=== PATIENT | male | born 2000 | race Caucasian/White ===

== ENCOUNTER 2019-10-02 10:57 | Outpatient (CLI) | payer SELFPAY | END 2019-10-02 10:58 | disposition critical access hospital (66) | LOC: EMS 10:57 | PROVIDERS: ATTEND Surgery | DX: R55 Syncope and collapse (principal); R56.9 Unspecified convulsions | CPT/HCPCS: A0425; A0429 ==

== ENCOUNTER 2019-10-02 11:37 | Emergency (ER) | payer SELFPAY ==
[2019-10-02] MEDS ORDERED: SODIUM CHLORIDE 0.9% 1,000 ML IV STA (12:10)
--- NOTE | 2019-10-02 12:13 | ED Physician Documentation ---
History of Present Illness - Stated complaint Stated Complaint: LOC - Chief complaint Chief Complaint: Neuro - History obtained from History obtained from: Patient, EMS - History of Present Illness Timing: Prior to arrival, How many hours ago (2) Pain level max: 0 Pain level now: 0 - Additonal information Additional information: 19-year-old male brought into the emergency [facility] via EMS after a syncopal episode at his job site. Patient reports to me that they told him at work he did not look well. He reports that he was sweating heavily. Patient denies that he fainted, however EMS and multiple workers at the job site do report loss of consciousness with possible seizure-like activity. On scene his blood sugar was 130. LOC approx 1 min Patient is not terribly forthcoming with information. 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 However he is employed by his father who was onsite at the workplace. Patient admits to drinking heavily in the last 24 hours 6-10 beers. He feels that he is most likely dehydrated. Patient reports that he had one other previous history of syncope in August of this year. In point patient denies fevers, body aches, nausea vomiting or diarrhea. He denies urinary symptoms, hematuria or dysuria. Patient is unsure if he could be diabetic.He takes no prescribed medications. PD PAST MEDICAL HISTORY - Present Medications Home Medications: Ambulatory Orders Medication Instructions Recorded Confirmed No Known Home Medications 10/02/19 10/02/19 - Allergies Allergies/Adverse Reactions: Allergies Allergy/AdvReac Type Severity Reaction Status Date / Time No Known Drug Allergies Allergy Verified 10/02/19 12:02 PD ED PE EXPANDED - General General: Alert, No acute distress, Other (dressed in construction gear) - HEENT HEENT: Atraumatic, PERRL, EOMI, Moist mucous membranes. No: Head injury, Tonsillar exudate, Soft palate petecchiae - Eyes Eyes: PERRL, Normal accommodation, EOMI - Neck Neck: Supple w/out meningeal sx, No tenderness. No: Adenopathy - Cardiac Cardiac: Regular Rate, Tachy, Radial strong equal, Pedal strong equal, Cap refill < 2 sec - Respiratory Respiratory: Clear to ausultation alicia. No: Distress - Abdomen Abdomen: Normal Bowel sounds. No: Tender to palpation - Derm Derm: Normal color, Warm and dry, Pale. No: Rash - Extremities Extremities: Normal - Neuro Neuro: Alert and Oriented X 3, Normal motor, Normal Speech, CNII-XII intact, PERRL, Cerebellar nl, Normal gait, Normal finger nose, Normal speech. No: Confused, Weakness, Abnormal sensation, Nystagmus - GCS Eye Opening: Spontaneous Motor: Obeys Commands Verbal: Oriented Total: 15 - Psych Psych: Normal, Poor eye contact, Other (guarded with answering questions) Results - Vitals Vitals: Vital Signs - 24 hr 10/02/19 10/02/19 11:40 12:30 Temperature 37.4 C Heart Rate 123 H 98 Respiratory 24 21 Rate Blood Pressure 136/84 H 139/92 H O2 Saturation 100 100 Oxygen O2 Source Room air - EKG (time done) 1222 Rate: Rate (enter#) (98) Rhythm: NSR [place]: Normal Intervals: Normal MA QRS: Normal Ischemia: Normal ST segments Compare to prior EKG: Old EKG unavailable Computer interpretation: Agree with computer (likely early repol) - Labs Labs: Laboratory Tests 10/02/19 10/02/19 10/02/19 12:20 12:20 12:20 WBC 8.9 RBC 4.64 L Hgb 15.0 Hct 42.7 MCV 92.0 MCH 32.3 H MCHC 35.1 RDW 12.7 Plt Count 271 MPV 10.0 Neut # (Auto) 6.6 Lymph # (Auto) 1.7 [place] # (Auto) 0.5 Eos # (Auto) 0.0 Baso # (Auto) 0.1 Absolute Nucleated RBC 0.00 Nucleated RBC % 0.0 Sodium 138 Potassium 3.4 L Chloride 101 Carbon Dioxide 26 Anion Gap 11.0 BUN 8 Creatinine 0.9 Estimated GFR (MDRD) 107 Glucose 82 Calcium 9.4 Total Bilirubin 0.9 AST 26 ALT 18 Alkaline Phosphatase 68 Total Creatine Kinase 322 H Troponin I High Sens 3.9 Total Protein 8.2 Albumin 4.9 Globulin 3.3 Albumin/Globulin Ratio 1.5 Lipase 24 Urine Opiates Screen Ur Oxycodone Screen Urine Methadone Screen Ur Propoxyphene Screen Ur Barbiturates Screen Ur Tricyclics Screen Ur Phencyclidine Scrn Ur Amphetamine Screen U Methamphetamines Scrn U Benzodiazepines Scrn Urine Cocaine Screen U Cannabinoids Screen 10/02/19 13:35 WBC RBC Hgb Hct MCV MCH MCHC RDW Plt Count MPV Neut # (Auto) Lymph # (Auto) [place] # (Auto) Eos # (Auto) Baso # (Auto) Absolute Nucleated RBC Nucleated RBC % Sodium Potassium Chloride Carbon Dioxide Anion Gap BUN Creatinine Estimated GFR (MDRD) Glucose Calcium Total Bilirubin AST ALT Alkaline Phosphatase Total Creatine Kinase Troponin I High Sens Total Protein Albumin Globulin Albumin/Globulin Ratio Lipase Urine Opiates Screen NEGATIVE Ur Oxycodone Screen NEGATIVE Urine Methadone Screen NEGATIVE Ur Propoxyphene Screen NEGATIVE Ur Barbiturates Screen NEGATIVE Ur Tricyclics Screen NEGATIVE Ur Phencyclidine Scrn NEGATIVE Ur Amphetamine Screen POSITIVE H U Methamphetamines Scrn POSITIVE H U Benzodiazepines Scrn POSITIVE H Urine Cocaine Screen NEGATIVE U Cannabinoids Screen POSITIVE H PD MEDICAL DECISION MAKING - ED course Complexity details: reviewed results, re-evaluated patient, considered differential, d/w patient ED course: 19-year-old male presents to the emergency department after a witnessed syncopal episode at work. Patient is very guarded in his answers but does admit to recent heavy alcohol use as well as snorting methamphetamine. - Patient's labs reviewed in full. Blood sugar is not markedly elevated. He has a mild CK elevation at 300 however this goes along with his mild dehydration and night of heavy drinking.Urine tox was positive for amphetamines methamphetamine cannabis and benzodiazepines.EKG nonischemic. - pt is alert and ordiented. no focal neuro deficits. defer imaging - Patient feels ready for discharge from the emergency department I have advised him to abstain from further illicit drug use. He is advised to improve hydration and to follow-up with his primary care provider in [place]. Departure - Departure Disposition: 01 Home, Self Care Clinical Impression: Illicit drug use Syncope Qualifiers: Syncope type: unspecified Qualified Code(s): R55 - Syncope and collapse Condition: Stable Instructions: ED Fainting Unkn Cause Comments: Juan José please abstain from using any further methamphetamine if you are able. Please drink a lot of water to get better hydrated. I would like you to follow- up this ED visit with your primary care provider in [place]. Return to the emergency department if you have any further fainting episodes feel faint or have a racing heart.
[2019-10-02 12:29] LABS: BASOPHILS # (AUTO) 0.1 10^3/uL (0.0-0.1); BASOPHILS % (AUTO) 0.6 %; EOSINOPHILS % (AUTO) 0.1 %; LYMPHOCYTES # (AUTO) 1.7 10^3/uL (1.5-3.5); LYMPHOCYTES % (AUTO) 18.7 %; MEAN CORPUSCULAR HEMOGLOBIN 32.3 pg (27.0-31.0); MEAN CORPUSCULAR HGB CONC 35.1 g/dL (32.0-36.0); MONOCYTES # (AUTO) 0.5 10^3/uL (0.0-1.0); MONOCYTES % (AUTO) 6.1 %; NEUTROPHILS # (AUTO) 6.6 10^3/uL (1.5-6.6); NEUTROPHILS % (AUTO) 74.3 %; PLT - PLATELET COUNT 271 10^3/uL (130-450); RED BLOOD COUNT 4.64 10^6/uL (4.70-6.10); RED CELL DISTRIBUTION WIDTH 12.7 % (12.0-15.0); WHITE BLOOD COUNT 8.9 x10^3/uL (4.8-10.8)
[2019-10-02 12:40] LABS: ALBUMIN 4.9 g/dL (3.2-5.5); ALBUMIN/GLOBULIN RATIO 1.5 (1.0-2.2); BILIRUBIN,TOTAL 0.9 mg/dL (0.2-1.0); CALCIUM 9.4 mg/dL (8.5-10.3); CREATININE 0.9 mg/dL (0.6-1.2); TOTAL PROTEIN 8.2 g/dL (6.7-8.2)
[2019-10-02 13:47] LABS: MUDS CUTOFF CONCENTRATIONS CUTOFF CONC BELOW:
[2019-10-02 14:06] LABS: AMPHETAMINE SCREEN,URINE POSITIVE (NEGATIVE); BENZODIAZEPINES SCREEN, URINE POSITIVE (NEGATIVE); COCAINE SCREEN URINE NEGATIVE (NEGATIVE); METHADONE SCREEN, URINE NEGATIVE (NEGATIVE); METHAMPHETAMINES SCREEN, URINE POSITIVE (NEGATIVE); OPIATE SCREEN, URINE NEGATIVE (NEGATIVE); OXYCODONE SCREEN, URINE NEGATIVE (NEGATIVE); TRICYCLIC ANTIDEPRESSANT,URINE NEGATIVE (NEGATIVE)
[2019-10-02 14:07] LABS: PROPOXYPHENE SCREEN, URINE NEGATIVE (NEGATIVE)
[2019-10-02 14:40] VITALS: BP 133/88
== END 2019-10-02 14:44 | disposition home or self-care (01) ==
LOC: ED 11:37
DX: R55 Syncope and collapse (principal); E86.0 Dehydration; F15.90 Other stimulant use, unspecified, uncomplicated; F12.90 Cannabis use, unspecified, uncomplicated
CPT/HCPCS: 36415; 80053; 80306; 82550; 83690; 84484; 85025; 93005; 99281; 99283